=== PATIENT | male | born 2000 | race Caucasian/White ===

== ENCOUNTER 2022-11-19 16:13 | Emergency (ER) | payer MEDICAID, SELFPAY ==
[2022-11-19 16:15] VITALS: BP 144/89; PULSE 124; RESP 16; TEMP 37.4; O2SAT 100; BMI 27.4
--- NOTE | 2022-11-19 16:34 | EX.ED.DYSGE1 ---
HPI History of Present Illness Chief Complaint: Other, Pain/Inj Detail of Chief Complaint: Blocked salivary gland Informant: patient Onset/Context/Timing Onset: Days (4 days) Context: Gradual Onset Narrative Narrative: Patient presents with a 4-day history of increased swelling along the right jaw. He went to urgent care and was told he had a blocked salivary gland. Because his temperature was over 99 they recommend he come to the emergency room. Patient states he does have increased pressure when he tries to open his mouth. He has no difficulty swallowing or breathing. He denies pain. He denies any dental issues. PFSH PFSH Medical History no medical history no medical history Home Medications amoxicillin 875 mg-potassium clavulanate 125 mg tablet 1 tab PO BID #20 tabs 11/19/22 [Rx Last Taken Unknown] prednisone 20 mg tablet 40 mg (2 x 20 mg) PO DAILY #8 tabs 11/19/22 [Rx Last Taken Unknown] Allergy/AdvReac Type Severity Reaction Status Date / Time No Known Allergies Allergy Verified 11/19/22 16:17 Surgical History no surgical history no surgical history Social History Smoking Status: Never smoker ROS ROS ED Constitutional Constitutional ED: Denies chills or fever(s) Eyes Eyes: Denies change in vision or discharge from eye(s) ENT ENT ED: Reports other Details: Right jaw swelling ; Denies discharge from eye(s), rhinorrhea or sore throat Cardiovascular Cardiovascular: Denies chest pain Respiratory/Chest Respiratory/Chest: Denies cough or dyspnea Gastrointestinal Gastrointestinal: Denies abdominal pain, nausea or vomiting Musculoskeletal Musculoskeletal: Denies back pain, extremity pain or neck pain Integumentary Denies Abrasions or rash Neurologic Neurologic: Denies headache(s) or weakness Psychiatric Psychiatric: Denies anxiety or depression Allergic/Immunologic Allergic/Immunologic ED: Denies lip swelling or urticaria EXAM Physical Exam Const Vital Signs: 11/19/22 16:15 11/19/22 16:30 Temperature 99.4 F H Temperature Source Oral Pulse Rate 124 H Respiratory Rate 16 Respiratory Pattern Normal Blood Pressure 144/89 H Blood Pressure Mean 107 Pulse Ox 100 Oxygen Delivery Method Room Air Positive well nourished and well developed General Appearance ED: well developed HEENT Reports moist mucous membranes HEENT Narrative: Slight edema noted along the right jawline. No submental fullness. No evidence of trismus or Robert's angina. No dental caries noted and no focal gum edema. No overlying skin erythema. Eyes PERRL and EOMs intact bilaterally Chest Wall inspection of chest normal Resp normal respiratory effort and clear to auscultation bilaterally Cardio regular rhythm Rate: tachycardic GI non-tender Palpation: soft Extremity normal to inspection Neuro oriented x3 and no sensory deficits noted Motor Exam: strength 5/5 throughout Psych mental status grossly normal Skin no rashes or lesions noted MDM MDM MDM Narrative Medical decision making narrative: Patient's exam is consistent with blocked salivary gland. We discussed eating lemon candies or sour candies to help unclog the duct. He will also be treated with Augmentin and prednisone to help with edema. I do not feel blood work or imaging studies are needed at this time. Return instructions provided. Discharge Plan Triage Chief Complaint: Other, Pain/Inj ED Provider: Razia Lucero Dx/Rx/DC Orders Clinical Impression: Salivary gland infection Instructions: ED Salivary Gland Infection Prescriptions: New amoxicillin-pot clavulanate 875-125 mg tablet 1 tab PO BID Qty: 20 0RF prednisone 20 mg tablet 40 mg PO DAILY Qty: 8 0RF Primary Care Provider: Jean-Pierre Norris Referrals: Yan Gimenez MD [Med Staff - Active Staff] - 10-14 Days if not better Jean-Pierre Norris MD [Primary Care Provider] - Disposition Disposition: Home, Self Care
[2022-11-19] MEDS: Amox/Clavulanate 875 MG Tablet PO (16:42)
[2022-11-19] MEDS: predniSONE 20 MG Tablet 40 MG PO (16:42)
== END 2022-11-19 16:51 | disposition home or self-care (01) ==
LOC: ED 16:50
PROVIDERS: Emergency Provider Emergency Medicine; PCP Family Medicine; Visit Provider Emergency Medicine
DX: K11.20 Sialoadenitis, unspecified (principal); Z79.52 Long term (current) use of systemic steroids
CPT/HCPCS: 99283